=== PATIENT | female | born 1965 | race Caucasian/White ===

== ENCOUNTER 2022-06-27 11:51 | Emergency (ER) | payer BC, MEDICAID, SELFPAY ==
[2022-06-27 12:01] VITALS: PULSE 109; RESP 15; TEMP 37; O2SAT 96; BMI 33.6
--- NOTE | 2022-06-27 13:03 | W.ED.EYEPROB ---
HPI - Eye Problem General: Chief complaint: Eye Problems Stated complaint: Right eye pain an swelling sent by PCP Time Seen by Provider: 06/27/22 12:14 Source: patient Mode of arrival: ambulatory Limitations: no limitations History of Present Illness: Patient is a 56-year-old female presents to ED today with a complaint of drainage to her right eye as well as some pain. Patient reportedly was seen at a walk-in facility and sent to the ED for further evaluation. Patient states symptoms started yesterday. She does states she had been recently cleaning at home that was sprayed for roaches. She states she may have gotten chemical spray in her eye. She states she woke up this morning with her eye matted shut secondary to drainage. Patient states she is not having any visual changes. She is not having any foreign body sensation to the eye. She has noticed some redness surrounding the eye but thinks this is secondary to rubbing it . MD chief complaint: eye pain, eye redness and foreign body Onset (ago): day(s) (yesterday) Location: right eye Eye Symptoms: pain and discharge Place: home Mechanism: chemical exposure (possibly?) Severity: mild Associated symptoms: Reports no associated symptoms; Denies fever(s), headache(s) or neck pain Treatments Prior to Arrival: none Related Data: Patient tetanus UTD: Yes Review of Systems Const: Denies: fever(s), chills, body aches, fatigue or malaise Eyes: Reports: eye discomfort and eye discharge; Denies: change in vision, blind spots, photophobia, floaters or seeing flashes Card: Denies: chest pain Resp: Denies: dyspnea GI: Denies: abdominal pain Musc: Denies: neck pain, back pain, extremity pain or joint pain Skin/Breast: Denies: rash Neuro: Denies: headache(s) Physical Exam Const: COMMON NORMALS: no acute distress and no limitations HENMT: COMMON NORMALS: normocephalic and atraumatic HEAD & SCALP: normal to inspection, normocephalic and atraumatic FACE & SINUS: normal facial exam Eye: COMMON NORMALS: Equal, round and reactive pupils present, EOMs intact bilaterally and no scleral icterus GENERAL EYE: normal light reflex and other (purulent drainage noted to R eye) VISUAL ACUITY: Yes acuity normal VISUAL JHAVERI: No peripheral vision loss and No central vision loss ALIGNMENT: Yes alignment normal PERIORBITAL: periorbital findings normal (mild periorbital redness) CONJUNCTIVA: Yes conjunctival abnormal (stain uptake noted to inferior conjunctiva; no corneal involvement) SCLERA: sclerae normal CORNEA: Yes corneas normal and fluorescein used PUPIL: Yes Equal, round and reactive pupils present DIRECT OPHTHALMOSCOPY: Yes normal light reflex OTHER: no photophobia; pain is not made worse by EOMs Neck/C-Spine: COMMON NORMALS: full ROM, no lymphadenopathy and no meningeal signs Neuro: MENINGEAL SIGNS: Yes no meningeal signs Course Vital Signs: Vital signs: Vital Signs Temperature 98.6 F 06/27/22 12:01 Pulse Rate 89 06/27/22 14:09 Respiratory Rate 18 06/27/22 14:09 Pulse Oximetry 97 06/27/22 14:09 Oxygen Delivery Me thod 06/27/22 12:01 MDM - Eye Problem Medical Decision Making Patient has some stain uptake to the inferior portion of her conjunctiva-no corneal involvement. She does have purulent drainage as well. No conjunctival lacerations or injuries noted. Will place on erythromycin for a possible conjunctival abrasion/conjunctivitis. She has no evidence for keratitis, iritis, no dendritic lesions seen on fluorescein staining, no signs of trauma noted, no hypopyon, no concern for acute angle glaucoma based on history. She does have some mild periorbital redness without much edema. Will go ahead and place on oral antibiotics for preseptal coverage. No signs/symptoms of an orbital cellulitis. Discharge Plan Discharge Patient Disposition: Home Clinical Impression: Bacterial conjunctivitis Conjunctival abrasion Qualifiers: Encounter type: initial encounter Laterality: right Qualified Code(s): S05.01XA - Injury of conjunctiva and corneal abrasion without foreign body, right eye, initial encounter Condition: Stable Prescriptions: New erythromycin 5 mg/gram (0.5 %) ointment 1 applic ophthalmic (eye) Q4H 7 Days Qty: 1 0RF amoxicillin-pot clavulanate 875-125 mg tablet 1 tab PO BID Qty: 14 0RF No Action hydrocodone bitartrate 10 mg capsule, oral only, ER 12hr 10 mg PO Q12H loratadine [Claritin] 10 mg tablet 10 mg PO DAILY ropinirole 5 mg tablet 5 mg PO DAILY Discharge Orders: Discharge ED (Routine); Ordered 06/27/22 Ordered By: Massiel Oscar Coding Level of Care Code ED Dispatcher [employer] for Meliza Martinez
[2022-06-27] MEDS: tetracaine 0.5% Op Soln 4 mL Btl 1 DROP EYE-RIGHT (14:08)
[2022-06-27] MEDS: eye irrigation 30 mL Btl EYE-RIGHT (14:08)
[2022-06-27] MEDS: fluorescein 1 mg Strip EYE-RIGHT (14:08)
--- NOTE | 2022-06-27 14:08 | PC.NURSE ---
MEDS ADMINISTERED BY PROVIDER.
[2022-06-27 14:09] VITALS: PULSE 89; RESP 18; O2SAT 97
--- NOTE | 2022-07-04 12:56 | DCPLANNER ---
07.01.22 - patient called due to no primary care physician - patient stated that she sees Emanuel Alejandre
== END 2022-06-27 14:10 | disposition home or self-care (01) ==
PROVIDERS: Emergency Provider Physician Assistant
DX: S05.01XA Injury of conjunctiva and corneal abrasion without foreign body, right eye, initial encounter (principal); H10.89 Other conjunctivitis; X58.XXXA Exposure to other specified factors, initial encounter
CPT/HCPCS: 99283